=== PATIENT | male | born 1975 | race Two or more races ===

== ENCOUNTER → 2024-03-31 | Outpatient (CLI) | payer MEDICAID, SELFPAY ==
--- NOTE | 2024-03-31 09:00 | XR_ITS ---
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
== END | disposition home or self-care (01) ==
PROVIDERS: PCP Family Medicine; Referring Provider Physician Assistant; Visit Provider Physician Assistant
DX: R10.31 Right lower quadrant pain (principal); K62.5 Hemorrhage of anus and rectum; K52.89 Other specified noninfective gastroenteritis and colitis
CPT/HCPCS: 74280

== ENCOUNTER 2024-08-11 08:30 | Day surgery (SDC) | payer MEDICAID, SELFPAY ==
--- NOTE | 2024-08-07 07:00 | EKG_ITS ---
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
[2024-08-07 07:28] VITALS: BMI 25.9
[2024-08-07 08:25] LABS: Collection Type, Urine Clean Catch
[2024-08-07 08:41] LABS: Basophils % (Auto) 1 % (0-2.5); Eosinophils # (Auto) 0.1 Thou/mm3 (0.0-0.5); Eosinophils % (Auto) 4 % (0-10); Hemoglobin 14.9 g/dL (13.5-16.0); Immature Granulocytes % (Auto) 0 % (0-0); Lymphocytes # (Auto) 1.6 Thou/mm3 (1.0-4.8); Lymphocytes % (Auto) 55 % (10-50); Mean Corpuscular HGB Conc 35.5 g/dl (31.0-37.0); Mean Corpuscular Volume 87 fL (80-100); Monocytes # (Auto) 0.3 Thou/mm3 (0.0-0.8); Monocytes % (Auto) 9 % (0-12); Neutrophils # (Auto) 0.9 Thou/mm3 (1.8-7.7); Neutrophils % (Auto) 31 % (37-80); Nucleated Red Blood Cell % 0 /100 WBC (0); Platelet Count 196 Thou/mm3 (140-440); RDW Standard Deviation 37.4 fL (35.1-43.9); Red Blood Count 4.81 Miln/mm3 (4.50-5.90)
[2024-08-07 08:44] LABS: Bilirubin,Urine Negative (Negative); Blood,Urine Negative (Negative); Clarity,Urine Clear (Clear/Hazy); Color,Urine Lt-Yellow (Lt Yel-Yel); Glucose, Urine Negative (Negative); Ketones,Urine Negative (Negative); Leukocyte Esterase,Urine Negative (Negative); Nitrite,Urine Negative (Negative); PH,Urine 5.5 (5.0-7.0); Protein,Urine Negative (Neg - Trace); RBC,Urine < 1 /hpf (0-3); Specific Gravity,Urine 1.025 (1.001-1.035); Squamous Epithelial Cell,Urine < 1 /hpf (0-5); Urobilinogen,Urine Negative mg/dL (0.0-1.0); WBC,Urine < 1 /hpf (0-5)
[2024-08-07 08:52] LABS: Anion Gap 7 (7-16); BUN/Creatinine Ratio 12 Ratio (12-20); Blood Urea Nitrogen 12 mg/dL (9-23); Calcium 8.7 mg/dL (8.3-10.6); Carbon Dioxide 30.8 mMol/L (20.0-31.0); Chloride 106 mMol/L (98-107); Estimated Creatinine Clearance 82.4 mL/min (>60); Glucose 105 mg/dL (74-106); Osmolality,Calculated 286 (275-295); Sodium 144 mMol/L (136-145); eGFR > 60 See Note
--- NOTE | 2024-08-10 14:12 | ESHP_ITS ---
RE: CHRISTOPHER CARDOZA : 1975 DATE OF ADMISSION: 08/11/2024 HISTORY OF PRESENT ILLNESS: A 49-year-old gentleman who was referred to me. The patient has meatal stenosis. He is scheduled for meatotomy and cystoscopy. The patient has urethral obstruction at the tip of his urethra. The patient has urinary flow comes and stops. His ejaculations are hard to come out because of the blockage. PAST SURGICAL HISTORY: Included left inguinal hernia repair and cholecystectomy. The patient had seen by Dr. Bai and Dr. Cormier in the past. PAST MEDICAL HISTORY: There is no history of diabetes mellitus. SOCIAL HISTORY: The patient has three children. MEDICATIONS: None. ALLERGIES: NONE KNOWN. PHYSICAL EXAMINATION: HEENT: Normal. NECK: Supple. LUNGS: Clear. CARDIOVASCULAR: Heart sounds are normal. ABDOMEN: Soft without any organomegaly. No guarding. No rigidity. EXTREMITIES: Normal. GENITOURINARY: Phallus revealed meatal stenosis. Testes are down in scrotum. RECTAL: Moderately enlarged smooth prostate. IMPRESSION: Meatal stenosis. PLAN: Meatotomy and cystoscopy. Planned procedure, risks and complications have been discussed with the patient. The patient has understood them and agreed to proceed. DT: 13:31:52 TT: 14:12:00 Ref: [id number] - TID: [id number]
[2024-08-11] VITALS (9 sets, daily range): BP systolic 94–130; BP diastolic 44–81; PULSE 55–69; RESP 12–20; TEMP 36.7–37; O2SAT 98–99; BMI 25.7
--- NOTE | 2024-08-11 11:55 | SUR.PHASEI ---
1152 Patient arrived to recovery resting comfortably in [facility], allowed to sleep, breathing unlabored, vital signs stable, dressing intact to penis; sutures, gauze, silk tape, scant amount of blood noted to dressing will monitor, report received from Dr. Burch/Shan BEAVER and Anuj TRIPATHI
--- NOTE | 2024-08-11 12:58 | SUR.PHASEII ---
1258 Report given to Angelica Granados RN, awake and alert, breathing unlabored, vital signs stable, dressing intact; no bleeding noted, denies nausea and pain
--- NOTE | 2024-08-11 13:25 | SUR.PHASEII ---
1258: pt awake, alert, able to follow commands, breathing unlabored, dressing to penis clean, dry, and intact, VS stable, pt able to tolerate oral fluids without difficulty swallowing or n/v, report from Angelica Neely RN 1325: pt able to dress self and ambulate to bathroom with steady gait, dressing to penis clean, dry, and intact, discharge instructions given with friend David present-all questions answered-pt and friend verbalize understanding of discharge instructions, pt discharged via wheelchair with all belongings and copies of discharge paperwork.
--- NOTE | 2024-08-12 07:27 | ESOP_ITS ---
RE: ANTIONEBrendaCHRISTOPHER ZAMORA : 1975 PREOPERATIVE DIAGNOSES: External urethral meatal stenosis and difficulty urinating. POSTOPERATIVE DIAGNOSES: External urethral meatal stenosis and difficulty urinating. PROCEDURE PERFORMED: Meatotomy and cystourethroscopy with urethral dilatation. ANESTHESIA: General by Dr. Burch. INDICATION: The patient is a 49-year-old male with history of meatal stenosis and has hard time urinating and he has a problem with his ejaculation. The ejaculate will not come out of the penis easily. He has meatal stenosis. He is also complaining of some prostatic symptoms with pain in his suprapubic area. He is now scheduled to have meatotomy and cystourethroscopy. Planned procedure, risks and complications have been discussed with the patient. The patient understood them and agreed to proceed. DESCRIPTION OF PROCEDURE: After the patient was brought to the operating table under adequate general anesthesia and dorsal lithotomy position, parts were prepped and draped in the usual fashion. A straight clamp was placed on the ventral aspect of the urethral meatus for about 0.5 cm long and it was clamped for about 20 seconds and then the incision was made on the ventral aspect of the meatus for about 0.5 cm. The urethral mucosa was everted with the glans penis skin, so the meatotomy in that way was carried out. Three sutures were placed, two on each side and one in the midline. This opened up the urethral meatus very well. Cystoscopy was then carried out, which was done with 19-Tajik cystoscope. The meatus is now wide open. The proximal urethra is open. There is no evidence of any other strictures. Prostatic urethra revealed mild enlargement of the prostate with bilobed prostate. Scope was introduced into the bladder. Residual urine is 2 ounces, yellow and clear. There are no intravesical stones or tumors. Ureteral orifices are normal in position and appearance. Bladder mucosa is normal. Scope was withdrawn. The patient tolerated the entire procedure well. A dressing was applied at the site of the incision. The patient tolerated the entire procedure well and left the room in good condition. Sponge count and needle count at the end of the procedure was found to be correct. Estimated blood loss was approximately 1 mL. DT: 12:20:09 TT: 20:04:00 Ref: [id number] - TID: [id number]
== END 2024-08-11 13:25 | disposition home or self-care (01) ==
PROVIDERS: PCP Family Medicine; Referring Provider Surgery; Visit Provider Surgery
PROC: 0TJB8ZZ Inspection of Bladder, Via Natural or Artificial Opening Endoscopic (ICD-10-PCS; CPT 52000; principal; 2024-08-11 11:15)
PROC: (CPT 53899; 2024-08-11 11:15)
DX: N35.911 Unspecified urethral stricture, male, meatal (principal); Z90.49 Acquired absence of other specified parts of digestive tract; Z01.810 Encounter for preprocedural cardiovascular examination
CPT/HCPCS: 52281; 36415; 80048; 81001; 85025; 87086; 93005; A4217; A4649; J0131; J0694; J1100; J2371; J2405; J2704; J3010

== ENCOUNTER → 2024-12-18 | Outpatient (CLI) | payer MEDICAID, SELFPAY ==
[2024-12-18 10:04] LABS: Basophils # (Auto) 0.1 Thou/mm3 (0.0-0.2); Basophils % (Auto) 2 % (0-2.5); Eosinophils # (Auto) 0.1 Thou/mm3 (0.0-0.5); Eosinophils % (Auto) 4 % (0-10); Hematocrit 46.0 % (41.0-53.0); Hemoglobin 15.9 g/dL (13.5-16.0); Immature Granulocytes Auto 0.00 Thou/mm3 (0.00-0.00); Lymphocytes # (Auto) 1.6 Thou/mm3 (1.0-4.8); Lymphocytes % (Auto) 47 % (10-50); Mean Corpuscular HGB Conc 34.6 g/dl (31.0-37.0); Mean Corpuscular Hemoglobin 31.2 pg (25.0-35.0); Mean Corpuscular Volume 90 fL (80-100); Monocytes # (Auto) 0.3 Thou/mm3 (0.0-0.8); Monocytes % (Auto) 9 % (0-12); Neutrophils # (Auto) 1.4 Thou/mm3 (1.8-7.7); Neutrophils % (Auto) 40 % (37-80); Nucleated Red Blood Cell # 0.00 Thou/mm3 (0.00-0.00); Nucleated Red Blood Cell % 0 /100 WBC (0); Platelet Count 214 Thou/mm3 (140-440); RDW Standard Deviation 38.2 fL (35.1-43.9); Red Blood Count 5.10 Miln/mm3 (4.50-5.90); White Blood Count 3.4 Thou/mm3 (3.8-10.6)
[2024-12-18 10:15] LABS: Ferritin 166 ng/mL (10.5-307.3); Iron 98 mcg/dL (65-175); Percent Iron Saturation 32 % (20-55); Total Iron Binding Capacity 303 mcg/dL (250-425); Unsaturated Iron Binding 205 (225-295)
[2024-12-18 10:20] LABS: Alanine Aminotransferase 44 U/L (10-49); Albumin, Serum 4.9 gm/dL (3.5-5.0); Albumin/Globulin Ratio 2.0 (1.2-2.2); Alkaline Phosphatase 51 U/L (46-116); Anion Gap 11 (7-16); Aspartate Amino Transferase 20 U/L (0-34); BUN/Creatinine Ratio 14 Ratio (12-20); Bilirubin,Total 0.7 mg/dL (0.3-1.2); Blood Urea Nitrogen 13 mg/dL (9-23); C-Reactive Protein < 0.5 mg/dL (0.0-0.9); Calcium 9.3 mg/dL (8.3-10.6); Calcium (Corrected) 9.3 mg/dL (8.5-10.1); Carbon Dioxide 28.0 mMol/L (20.0-31.0); Chloride 104 mMol/L (98-107); Creatinine (Component) 0.9 mg/dL (0.6-1.3); Globulin 2.4 gm/dL (2.3-3.5); Glucose 94 mg/dL (74-106); Osmolality,Calculated 285 (275-295); Potassium 4.6 mMol/L (3.4-5.1); Sodium 143 mMol/L (136-145); Total Protein 7.3 gm/dL (5.7-8.2); eGFR > 60 See Note
[2024-12-18 10:31] LABS: Folate 18.43 ng/mL (>5.38); Hepatitis B Surface Ab NonReact(Not Immune) (Immune); Hepatitis B Surface Antigen Non Reactive (Non React); Vitamin B12 381 pg/mL (211-911); Vitamin D 25 Hydroxy Total 30.7 ng/mL (7.3-40.2)
[2024-12-21 06:34] LABS: Hepatitis B Core Ab,Total* NONREACTIVE
[2024-12-25 06:20] LABS: Calprotectin, Stool* 39 mcg/g
== END | disposition home or self-care (01) ==
LOC: COPL 08:57
PROVIDERS: PCP Nurse Practitioner Family; Referring Provider Student in an Organized Health Care Education/Training Program; Visit Provider Student in an Organized Health Care Education/Training Program
DX: R10.31 Right lower quadrant pain (principal); R10.32 Left lower quadrant pain
CPT/HCPCS: 36415; 80053; 82306; 82607; 82728; 82746; 83540; 83550; 83993; 85025; 86140; 86704; 86706; 87340

== ENCOUNTER 2025-01-19 08:11 | Emergency (ER) | payer MEDICAID, SELFPAY ==
[2025-01-19 08:20] VITALS: BP 132/82; PULSE 65; RESP 18; TEMP 36.7; O2SAT 98; BMI 23.9
--- NOTE | 2025-01-19 08:25 | XR_ITS ---
Examination: CT abdomen and pelvis without contrast. Coronal 3-D reconstructions. Sagittal 2-D reconstructions. Date and time of exam: January 19, 2025, 0836 hours, comparison July 29, 2023 INDICATIONS: Right lower abdominal pain onset today CTDI: vol (mGy): 6.28 DLP: (mGycm): 383 Technique: Axial images of the abdomen have been obtained, 3 mm slice thickness Intravenous contrast material has not been administered. Low dose protocols were performed. One or more of the following dose reduction techniques were used; automated exposure control, adjustment of the mA and/or KV according to patient size, use of iterative reconstruction technique. Findings: 12 mm liver cyst No focal splenic lesions Absent gallbladder No pancreatic or adrenal mass No renal or ureteral calculi, no hydronephrosis Aorta normal size No bowel obstruction Normal appendix No diverticulitis No significant prostatomegaly Contracted urinary bladder IMPRESSION: No renal or ureteral calculi, no hydronephrosis No CT findings of appendicitis bowel obstruction or diverticulitis
[2025-01-19 08:49] LABS: Collection Type, Urine Clean Catch
[2025-01-19 08:55] LABS: Bilirubin,Urine Negative (Negative); Blood,Urine Negative (Negative); Clarity,Urine Clear (Clear/Hazy); Color,Urine Lt-Yellow (Lt Yel-Yel); Culture Indicated,Urine Not Indicated; Glucose, Urine Negative (Negative); Ketones,Urine Negative (Negative); Leukocyte Esterase,Urine Negative (Negative); Nitrite,Urine Negative (Negative); PH,Urine 6.0 (5.0-7.0); Protein,Urine Negative (Neg - Trace); RBC,Urine 1 /hpf (0-3); Specific Gravity,Urine 1.017 (1.001-1.035); Squamous Epithelial Cell,Urine < 1 /hpf (0-5); Urobilinogen,Urine Negative mg/dL (0.0-1.0); WBC,Urine < 1 /hpf (0-5)
[2025-01-19 09:02] LABS: Basophils # (Auto) 0.0 Thou/mm3 (0.0-0.2); Basophils % (Auto) 1 % (0-2.5); Eosinophils # (Auto) 0.0 Thou/mm3 (0.0-0.5); Eosinophils % (Auto) 1 % (0-10); Hematocrit 43.7 % (41.0-53.0); Hemoglobin 15.3 g/dL (13.5-16.0); Immature Granulocytes Auto 0.00 Thou/mm3 (0.00-0.00); Lymphocytes # (Auto) 1.1 Thou/mm3 (1.0-4.8); Lymphocytes % (Auto) 39 % (10-50); Mean Corpuscular HGB Conc 35.0 g/dl (31.0-37.0); Mean Corpuscular Hemoglobin 30.9 pg (25.0-35.0); Mean Corpuscular Volume 88 fL (80-100); Monocytes # (Auto) 0.3 Thou/mm3 (0.0-0.8); Monocytes % (Auto) 9 % (0-12); Neutrophils # (Auto) 1.4 Thou/mm3 (1.8-7.7); Neutrophils % (Auto) 50 % (37-80); Nucleated Red Blood Cell # 0.00 Thou/mm3 (0.00-0.00); Nucleated Red Blood Cell % 0 /100 WBC (0); Platelet Count 197 Thou/mm3 (140-440); RDW Standard Deviation 38.2 fL (35.1-43.9); Red Blood Count 4.95 Miln/mm3 (4.50-5.90); White Blood Count 2.9 Thou/mm3 (3.8-10.6)
[2025-01-19 09:07] LABS: Amphetamine/Methamp Scrn,U Negative (Negative); Barbiturate Screen,Urine Negative (Negative); Benzodiazepines Screen,Urine Negative (Negative); Benzoylecgonine Screen, Ur Negative (Negative); Fentanyl Screen,Urine Negative (Negative); Opiate Screen,Urine Positive (Negative); THC Screen,Urine Negative (Negative)
[2025-01-19 09:19] LABS: Alanine Aminotransferase 48 U/L (10-49); Albumin, Serum 5.2 gm/dL (3.5-5.0); Albumin/Globulin Ratio 2.6 (1.2-2.2); Alkaline Phosphatase 55 U/L (46-116); Anion Gap 8 (7-16); Aspartate Amino Transferase 28 U/L (0-34); BUN/Creatinine Ratio 12 Ratio (12-20); Bilirubin,Total 1.1 mg/dL (0.3-1.2); Blood Urea Nitrogen 12 mg/dL (9-23); Calcium 9.3 mg/dL (8.3-10.6); Calcium (Corrected) 9.3 mg/dL (8.5-10.1); Carbon Dioxide 30.4 mMol/L (20.0-31.0); Chloride 103 mMol/L (98-107); Creatinine (Component) 1.0 mg/dL (0.6-1.3); Estimated Creatinine Clearance 88.4 mL/min (>60); Globulin 2.0 gm/dL (2.3-3.5); Glucose 96 mg/dL (74-106); Lipase 27 U/L (12-53); Osmolality,Calculated 280 (275-295); Potassium 4.2 mMol/L (3.4-5.1); Sodium 141 mMol/L (136-145); Total Protein 7.2 gm/dL (5.7-8.2); eGFR > 60 See Note
--- NOTE | 2025-01-19 09:24 | EDNOTE_ITS ---
<Statement entered by Deedee Sherwood MD - 02/08/25 06:20> As co-signing physician, I was present and available for consult prn. I concur with the plan and care as documented by the midlevel provider. ED Abdominal Pain RME/HPI General Chief Complaint: Abdominal Pain Stated complaint: RIGHT ABDOMINAL PAIN X SEVERAL MONTHS Time seen by provider: 01/19/25 08:25 Arrival date/time: 01/19/25 08:11 49-year-old male presents to the emergency department he was today for complaints of abdominal pain for several months patient reports no fever nausea or vomiting patient reports pain is in lower abdomen Limitations: no limitations Related Data Home Medications ?Medication ?Instructions ?Recorded ?Confirmed omeprazole 20 mg tablet,delayed 20 mg PO QDAY 11/05/18 08/11/24 release tamsulosin 0.4 mg capsule 0.4 mg PO QDAY 11/05/1806/02 valacyclovir 500 mg tablet 500 mg PO DAILY PRN HSV 08/11/24 Allergies Allergy/AdvReac Type Severity Reaction Status Date / Time No Known Allergies Allergy Unverified 01/19/25 08:13 Review of Systems Review of Systems Systems Reviewed: All systems reviewed, normal except as documented Constitutional Constitutional: Reports system reviewed and no additional complaints, except as documented, Denies fever(s) and Denies headache(s) Eyes Eyes: Reports system reviewed and no additional complaints, except as documented and Denies blurry vision ENT Ears, Nose, Mouth, and Throat: Reports system reviewed and no additional complaints, except as documented, Denies headache(s), Denies nasal congestion and Denies nasal discharge Cardiovascular Cardiovascular: Reports system reviewed and no additional complaints, except as documented, Denies chest pain and Denies dyspnea Respiratory Respiratory: Reports system reviewed and no additional complaints, except as documented, Denies chest congestion, Denies cough and Denies dyspnea Gastrointestinal Gastrointestinal: Reports system reviewed and no additional complaints, except as documented, Reports abdominal pain, Denies loose stools and Denies nausea Integumentary/Breasts Skin/Breast: Reports system reviewed and no additional complaints, except as documented and Denies rash Neurologic Neurologic: Reports system reviewed and no additional complaints, except as documented, Reports as per HPI and Denies headache(s) Past Medical History Past Medical History NEUROLOGIC: Negative Neurological Disorders or Seizures CARDIAC: Positive Cardiac Disorders and Hypercholesterolemia (Diet control); Negative Congestive Heart Failure or Hypertension RESPIRATORY: Negative Chronic Obstructive Pulmonary Disease (COPD) GASTROINTESTINAL: Positive Gastrointestinal Disorders (fatty liver) GENITOURINARY: Positive Genitourinary Disorders (has stricture); Negative Renal Disease REPRODUCTIVE: Positive Genital Herpes MUSCULOSKELETAL: Positive Musculoskeletal Disorders ENT: Negative Glaucoma ENDOCRINE: Negative Endocrine Disorders, Diabetes Mellitus Type 1 or Diabetes Mellitus Type 2 HEMATOLOGIC: Negative Blood Disorders PSYCHO/SOCIAL: Positive Recreational Drug Use (Past) OTHER HISTORY: Negative Hospitalization, Autoimmune Disease, Blood Transfusions, Blood Transfusion Reaction or Anesthesia Reactions Family History FAMILY HISTORY: Positive Family Cancer and Family Surgery; Negative Family Psychiatric Problems, Family Respiratory Disorders, Family Cardiac Disorders, Family Gastrointestinal Problems or Family Anesthesia Reaction Surgical History SURGICAL: Positive Abdominal Surgery Social History SMOKING STATUS: Former smoker ED Exam General Limitations: Present no limitations General appearance: Present alert and in no apparent distress Head Head exam: Present atraumatic and normal inspection Eye Eye exam: Present normal appearance, PERRL and EOMI; Absent conjunctival injection ENT ENT exam: Present normal exam, normal oropharynx and mucous membranes moist Neck Neck exam: Present normal inspection, full ROM and trachea midline Chest Chest inspection: Present normal inspection and symmetric chest wall rise Respiratory Respiratory exam: Present normal lung sounds bilaterally; Absent respiratory distress Cardiovascular Cardiovascular exam: Present regular rate, normal rhythm and normal heart sounds Abdominal Exam Abdominal exam: Present soft and normal bowel sounds; Absent distention, tenderness, guarding, rebound, rigidity or tenderness at McBurney's Point Abdominal tenderness: Absent RUQ or RLQ Extremities Exam Extremities exam: Present normal inspection and full ROM Back Exam Back exam: Present normal inspection and full ROM Neurological Exam Neurological exam: Present alert, oriented X3 and CN II-XII intact Psychiatric Psychiatric exam: Present normal affect and normal mood Skin Skin exam: Present warm, dry, intact and normal color Course Quality Measures none Orders Category Date Time Status CT abdomen pelvis wo con Stat Exams 01/19/25 08:25 Completed CBC Stat Lab 01/19/25 08:19 Completed Comprehensive Metabolic Panel Stat Lab 01/19/25 08:19 Completed Drug Screen,Urine Stat Lab 01/19/25 08:38 Completed Lipase Stat Lab 01/19/25 08:19 Completed UA, C/S IF [Urinalysis, C/S if Indicated] Stat Lab 01/19/25 08:38 Completed Vital Signs Vital signs: Vital Signs Temperature 98.0 F 01/19/25 08:20 Pulse Rate 65 01/19/25 08:20 Respiratory Rate 18 01/19/25 08:20 Blood Pressure 132/82 H 01/19/25 08:20 Pulse Oximetry (%) 98 01/19/25 08:20 Oxygen Delivery Method Room Air 01/19/25 08:20 O2 saturation 98% room air within normal limits Abdominal Pain MDM MDM Narrative MDM Narrative:: 49-year-old male presents to the emergency department he was today for complaints of abdominal pain for several months patient reports no fever nausea or vomiting patient reports pain is in lower abdomen On exam patient well-appearing does not appear ill or toxic Patient soft nontender abdomen Lab work imaging obtained no acute emergent findings noted Patient instructed follow-up PCP for chronic abdominal pain Patient data External records reviewed:: [facility] previous records Clinical information provided by:: patient Social determinants that could affect healthcare access:: none Patient has the following chronic illnesses:: None How is presenting disease/condition affected by chronic disease/condition?: no chronic disease Evaluation data The following diagnostics were reviewed and interpreted by me:: lab results and radiology exam(s) Lab and/or radiology exams considered but not ordered:: Labs radiology obtained Interpretation Summary: Reviewed by me Medications / Prescriptions Medications or Prescriptions considered but not ordered:: Given no meds Medication administrations:: Given no meds Consultations Consultation(s) initiated? (list below): No Diagnosis Differential diagnosis abdominal pain: abdominal pain, acute appendicitis and pancreatitis Most likely diagnosis given after review of the tests above:: Abdominal pain Admission Indicated Admission indicated?: not indicated Admission Request Was there a request for admission?: No Disposition Plan Disposition Plan: Discharge Discharge Attestation Discharge Attestation: The patient and all family members were given an opportunity to ask questions and understood the discharge instructions. Discharge instructions specifically effects, indications for sooner follow up or return to the emergency department, and the expected course of current diagnosis. Patient condition: Stable Discharge Plan Plan Patient Disposition: HOME (Self Care) Discharge Disposition comment: Stable Prescriptions/Referrals Prescriptions/Med Rec: No Action omeprazole 20 mg tablet,delayed release (DR/EC) 20 mg PO QDAY tamsulosin 0.4 mg capsule 0.4 mg PO QDAY valacyclovir 500 mg tablet 500 mg PO DAILY PRN (Reason: HSV) Patient Comments: TAKE 1 TABLET BY MOUTH EVERY DAY FOR RECURRING HSV Referrals: Adam Jean MD [Primary Care Provider, Family Practice] - In 1 week Problem List Clinical Impression: Abdominal pain Patient/Caregiver Discharge Instructions Education Materials: Abdominal Pain Additional Instructions: Please follow up with your primary care doctor in the next 24-48hrs for any worsening symptoms return here immediately If symptoms persist you may need to see a GI specialist for further evaluation and treatment Print Language: Zambian Stand Alone Forms: Cindy Award Info., Work/School Release, Patient Portal Info Letter PA/PROFESSOR OF LANGUAGES Supervising Physician PA/BHARAT Supervising Physician: Dr. sherwood
== END 2025-01-19 10:58 | disposition home or self-care (01) ==
PROVIDERS: Nurse Practitioner Primary Care; Emergency Provider Emergency Medicine; PCP Family Medicine
DX: R10.9 Unspecified abdominal pain (principal)
CPT/HCPCS: 36415; 74176; 80053; 80307; 81001; 83690; 85025; 99283